=== PATIENT | female | born 1975 | race Caucasian/White ===

== ENCOUNTER 2017-12-17 09:38 | Emergency (ER) | payer BC, OTHER ==
[~2017-12-17] VITALS: Ht 160 cm; Wt 99.0 kg
[~2017-12-17 09:38] MED LIST: HYDR50 PO; PROT40TA PO
[2017-12-17 09:42] VITALS: BP 157/80; PULSE 91; RESP 16; TEMP 98.1; O2SAT 100
[2017-12-17] MEDS ORDERED: BACT800T5 PO (09:49)
[2017-12-17] MEDS ORDERED: IBUP1TAB7 PO (09:49)
--- NOTE | 2017-12-17 10:12 | PD ---
HPI Chief Complaint: Skin Problem Time Seen by Provider: 09:56 Travel History International Travel<30 days: No Contact w/Intl Traveler<30days: No Traveled to known affect area: No History of Present Illness HPI 42-year-old female presents to the emergency department for evaluation of cellulitis to her left upper back. Patient states it started out very small as if it was an insect bite. She saw her primary care physician on Tuesday and was diagnosed with cellulitis. She was placed on Bactrim. She has been taking the Bactrim as prescribed since Tuesday. However, she states the area is increasing and becoming more painful. Current pain is 9/10, aching and throbbing, without radiation. She denies any fevers, but states "I do not feel well". No chest pain shortness breath. No abdominal pain. No vomiting. She denies . No exacerbating or alleviating factors. Moderate severity PFSH Past Medical History Medical History: Denies Significant Hx Hx Anticoagulant Therapy: No Diabetes: No Diminished Hearing: No Tetanus Vaccination: Unknown ?: Not Past Surgical History Cholecystectomy: Yes Gynecologic Surgery: Yes (LUMPECTOMY LEFT BREAST) Thoracic Surgery: Yes (L-5 SX.S TIMES 2) Social History Alcohol Use: Yes (SOC) Tobacco Use: No Substance Use: No Allergies-Medications (Allergen,Severity, Reaction): Coded Allergies: morphine (Unverified Allergy, Intermediate, Itching, 12/17/17) itch all over penicillin G (Unverified Allergy, Intermediate, Hives, 12/17/17) hives all over tramadol (Unverified Allergy, Intermediate, Itching, 12/17/17) itch all over Reported Meds & Prescriptions Reported Meds & Active Scripts Active Reported Bactrim DS (Sulfamethoxazole-Trimethoprim) 800-160 Mg Tab 1 Tab PO BID Ibuprofen 800 Mg Tab 800 Mg PO Q6HR PRN Review of Systems Except as stated in HPI: all other systems reviewed are Neg Physical Exam Narrative GENERAL: Well-nourished, well-developed female patient, afebrile SKIN: Focused skin assessment warm/dry. Patient has 17 centimeter by 6 cm area of erythema and induration to the left upper back without obvious fluctuance or drainage. HEAD: Normocephalic. Atraumatic EYES: No scleral icterus. No injection or drainage. NECK: Supple, trachea midline. No JVD or lymphadenopathy. CARDIOVASCULAR: Regular rate and rhythm without murmurs, gallops, or rubs. RESPIRATORY: Breath sounds equal bilaterally. No accessory muscle use. Lung sounds are clear to auscultation. GASTROINTESTINAL: Abdomen soft, non-tender, nondistended. MUSCULOSKELETAL: No cyanosis, or edema. BACK: Nontender without obvious deformity. No CVA tenderness. Data Data Last Documented VS Vital Signs Date Time Temp Pulse Resp B/P (MAP) Pulse Ox O2 Delivery O2 Flow Rate FiO2 12/17/17 09:42 98.1 91 16 157/80 (105) 100 Orders Orders Complete Blood Count With Diff (12/17/17 10:06) Lactic Acid Sepsis Protocol (12/17/17 10:06) Blood Culture (12/17/17 10:06) Sodium Chlor 0.9% 1000 Ml Inj (Ns 1000 M (12/17/17 10:15) Comprehensive Metabolic Panel (12/17/17 10:12) Case Management Consult (12/17/17 ) Asp:No Reaction To [facility]/Vanc (Asp Crit (12/17/17 11:15) Asp: Does Not Meet Inpt Admit (Asp Crit: (12/17/17 11:15) Asp: Iv Antibiotics Admit Only (Asp Crit (12/17/17 11:15) Asp: Location Of [facility] Admin (Asp Crit: (12/17/17 11:15) Pharmacy Information ([facility] [place] Pharmacy Info (12/17/17 11:15) Dalbavancin Inj (Dalvance Inj) (12/17/17 11:09) Ketorolac Inj (Toradol Inj) (12/17/17 11:15) Oxycodone-Acetamin 10-325 Mg (Percocet 1 (12/17/17 13:15) Labs Laboratory Tests Test 12/17/17 10:29 White Blood Count 12.4 TH/MM3 Red Blood Count 4.63 MIL/MM3 Hemoglobin 13.9 GM/DL Hematocrit 40.7 % Mean Corpuscular Volume 87.9 FL Mean Corpuscular Hemoglobin 30.0 PG Mean Corpuscular Hemoglobin Concent 34.2 % Red Cell Distribution Width 12.9 % Platelet Count 223 TH/MM3 Mean Platelet Volume 8.3 FL Neutrophils (%) (Auto) 88.1 % Lymphocytes (%) (Auto) 6.2 % Monocytes (%) (Auto) 4.8 % Eosinophils (%) (Auto) 0.2 % Basophils (%) (Auto) 0.7 % Neutrophils # (Auto) 10.9 TH/MM3 Lymphocytes # (Auto) 0.8 TH/MM3 Monocytes # (Auto) 0.6 TH/MM3 Eosinophils # (Auto) 0.0 TH/MM3 Basophils # (Auto) 0.1 TH/MM3 CBC Comment DIFF FINAL Differential Comment Blood Urea Nitrogen 7 MG/DL Creatinine 0.62 MG/DL Random Glucose 105 MG/DL Total Protein 7.6 GM/DL Albumin 3.4 GM/DL Calcium Level 8.9 MG/DL Alkaline Phosphatase 75 U/L Aspartate Amino Transf (AST/SGOT) 8 U/L Alanine Aminotransferase (ALT/SGPT) 19 U/L Total Bilirubin 0.3 MG/DL Sodium Level 138 MEQ/L Potassium Level 3.5 MEQ/L Chloride Level 106 MEQ/L Carbon Dioxide Level 26.4 MEQ/L Anion Gap 6 MEQ/L Estimat Glomerular Filtration Rate 105 ML/MIN Lactic Acid Level 1.1 mmol/L MDM Medical Decision Making Medical Screen Exam Complete: Yes Emergency Medical Condition: Yes Medical Record Reviewed: Yes Differential Diagnosis Cellulitis versus abscess versus failed outpatient treatment versus sepsis Narrative Course 42-year-old female presents to the emergency department for evaluation of cellulitis to her left upper back that has been worsening despite being on Bactrim. IV access is obtained. CBC, BMP, lactic acid, blood cultures 2 were ordered and pending. Will assess for possible Dalvance candidate. CBC shows leukocytosis 12.4. CMP shows no acute abnormality. Lactic acid is 1.1. I consulted my attending physician, Dr. Bradshaw who examined patient as well. She agrees the patient is a candidate for Dalvance. Dalvance is ordered. Patient is given Toradol 30 mg IV for pain. Diagnosis Primary Impression: Cellulitis of upper back excluding scapular region Referrals: Angela Archer MD call for appointment Primary Care Physician call for appointment Patient Instructions: Cellulitis (ED), General Instructions Departure Forms: Tests/Procedures, Work Release Enter return to work date: December 20, 2017 Additional Instructions: Follow-up with infectious disease. Dr. Archer is the infectious disease physician fabrication lead today. You received Dalvance in the emergency department. Follow up with your primary care physician. Return to the emergency department for any acute worsening of symptoms per Med/Other Pt SpecificInfo: No Change to Meds Disposition: 01 DISCHARGE HOME Condition: Stable Nisa Sanders Dec 17, 2017 10:12
[2017-12-17] MEDS ORDERED: SODIUM CHLOR 0.9% 1000 ML INJ 1,000 ML IV ONE (10:15)
[2017-12-17 10:39] LABS: AUTOMATED NEUTROPHIL # 10.9 TH/MM3 (1.8-7.7); BASOPHIL # 0.1 TH/MM3 (0-0.2); BASOPHIL % 0.7 % (0.0-2.0); EOSINOPHIL % 0.2 % (0.0-4.0); HEMATOCRIT 40.7 % (35.0-46.0); HEMOGLOBIN 13.9 GM/DL (11.6-15.3); LYMPH % 6.2 % (9.0-44.0); LYMPHOCYTE # 0.8 TH/MM3 (1.0-4.8); MEAN CELL VOLUME 87.9 FL (80.0-100.0); MEAN CORPUSCULAR HGB CONC 34.2 % (32.0-36.0); MEAN PLATELET VOLUME 8.3 FL (7.0-11.0); MONO % 4.8 % (0.0-8.0); MONOCYTE # 0.6 TH/MM3 (0-0.9); NEUT % 88.1 % (16.0-70.0); PLATELET COUNT 223 TH/MM3 (150-450); RED BLOOD COUNT 4.63 MIL/MM3 (4.00-5.30); RED CELL DISTRIBUTION WIDTH 12.9 % (11.6-17.2); WHITE BLOOD COUNT 12.4 TH/MM3 (4.0-11.0)
[2017-12-17 10:50] LABS: CHLORIDE 106 MEQ/L (98-107); SODIUM (NA) 138 MEQ/L (136-145)
[2017-12-17 10:53] LABS: ALBUMIN 3.4 GM/DL (3.4-5.0); BICARBONATE 26.4 MEQ/L (21.0-32.0); CALCIUM 8.9 MG/DL (8.5-10.1); GLUCOSE,RANDOM 105 MG/DL (74-106)
[2017-12-17 10:54] LABS: BLOOD UREA NITROGEN 7 MG/DL (7-18)
[2017-12-17 10:56] LABS: ALT (GPT) 19 U/L (10-53)
[2017-12-17 10:57] LABS: AST (GOT) 8 U/L (15-37); CREATININE 0.62 MG/DL (0.50-1.00); GLOMERULAR FILTRATION RATE 105 ML/MIN (>89)
[2017-12-17 10:58] LABS: TOTAL BILIRUBIN ADULT 0.3 MG/DL (0.2-1.0); TOTAL PROTEIN 7.6 GM/DL (6.4-8.2)
[2017-12-17 10:59] LABS: ALKALINE PHOSPHATASE 75 U/L (45-117)
--- NOTE | 2017-12-17 11:08 | PD ---
Physical Exam Date Seen by Provider: Dec 17, 2017 Time Seen by Provider: 11:05 Narrative I was asked to see this patient by CHRIS Henry. The patient presents with a skin infection on her left upper back. She is already on Bactrim but it is getting worse rather than better. Nisa's question was whether or not this patient would be a good candidate for Dalvance. On exam, she has a well-circumscribed area of induration, redness and tenderness. No fluctuance. Data Data Last Documented VS Vital Signs Date Time Temp Pulse Resp B/P (MAP) Pulse Ox O2 Delivery O2 Flow Rate FiO2 12/17/17 09:42 98.1 91 16 157/80 (105) 100 Orders Orders Complete Blood Count With Diff (12/17/17 10:06) Lactic Acid Sepsis Protocol (12/17/17 10:06) Blood Culture (12/17/17 10:06) Sodium Chlor 0.9% 1000 Ml Inj (Ns 1000 M (12/17/17 10:15) Ed Urine Pregnancytest Poc (12/17/17 10:07) Comprehensive Metabolic Panel (12/17/17 10:12) Labs Laboratory Tests Test 12/17/17 10:29 White Blood Count 12.4 TH/MM3 Red Blood Count 4.63 MIL/MM3 Hemoglobin 13.9 GM/DL Hematocrit 40.7 % Mean Corpuscular Volume 87.9 FL Mean Corpuscular Hemoglobin 30.0 PG Mean Corpuscular Hemoglobin Concent 34.2 % Red Cell Distribution Width 12.9 % Platelet Count 223 TH/MM3 Mean Platelet Volume 8.3 FL Neutrophils (%) (Auto) 88.1 % Lymphocytes (%) (Auto) 6.2 % Monocytes (%) (Auto) 4.8 % Eosinophils (%) (Auto) 0.2 % Basophils (%) (Auto) 0.7 % Neutrophils # (Auto) 10.9 TH/MM3 Lymphocytes # (Auto) 0.8 TH/MM3 Monocytes # (Auto) 0.6 TH/MM3 Eosinophils # (Auto) 0.0 TH/MM3 Basophils # (Auto) 0.1 TH/MM3 CBC Comment DIFF FINAL Differential Comment Blood Urea Nitrogen 7 MG/DL Creatinine 0.62 MG/DL Random Glucose 105 MG/DL Total Protein 7.6 GM/DL Albumin 3.4 GM/DL Calcium Level 8.9 MG/DL Alkaline Phosphatase 75 U/L Aspartate Amino Transf (AST/SGOT) 8 U/L Alanine Aminotransferase (ALT/SGPT) 19 U/L Total Bilirubin 0.3 MG/DL Sodium Level 138 MEQ/L Potassium Level 3.5 MEQ/L Chloride Level 106 MEQ/L Carbon Dioxide Level 26.4 MEQ/L Anion Gap 6 MEQ/L Estimat Glomerular Filtration Rate 105 ML/MIN Lactic Acid Level 1.1 mmol/L MDM Supervised Visit with FAIZA: Yes Narrative Course I, Dr. Bradshaw, have reviewed the advance practice practitioner's documentation and am in agreement, met with the patient face to face, made the diagnosis, and the medical decision making was done by me. *My assessment and Findings: This patient looks like she would be a good candidate for Dalvance. Please see Nisa Sanders NP's note for laboratory and radiology results, final diagnosis and disposition Tara Bradshaw MD Dec 17, 2017 11:08
[2017-12-17] MEDS ORDERED: DALBAVANCIN INJ 1,500 MG in DEXTROSE 5% IN WATE 500 ML INJ 500 ML IV STA ×2 (11:09)
[2017-12-17] MEDS ORDERED: KETOROLAC TROMETHAMINE 30 MG/ML (IVP) VIAL IV PUSH ONE (11:15)
[2017-12-17] MEDS ORDERED: PHARMACY INFORMATION XX ONE (11:15)
[2017-12-17] MEDS ORDERED: ASP: Does not meet inpatient admission criteria OTHER ONE (11:15)
[2017-12-17] MEDS ORDERED: ASP: Location of Dalbavancin administration OTHER ONE (11:15)
[2017-12-17] MEDS ORDERED: ASP: No known hypersensitivity to Vanco, Telavancin, Dalbavancin OTHER ONE (11:15)
[2017-12-17] MEDS ORDERED: ASP: Only reason for admit - IV antibiotics OTHER ONE (11:15)
[2017-12-17] MEDS ORDERED: oxyCODONE/ACETAMINOPHEN 10 MG/325 MG TAB PO ONE (13:15)
[2017-12-17 14:20] VITALS: TEMP 98.6
== END 2017-12-17 14:22 | disposition home or self-care (01) ==
LOC: PHED 09:38
DX: L03.312 Cellulitis of back [any part except buttock and flank] (principal)
CPT/HCPCS: 80053; 83605; 84703; 85025; 87040; 96361; 96365; 96375; 99284; J0875; J1885; J7030; J7060